=== PATIENT | female | born 1980 | race Hispanic/Latino ===

== ENCOUNTER 2021-12-10 12:01 | Inpatient (IN) | payer SELFPAY ==
[~2021-12-10] VITALS: Ht 167.6 cm; Wt 98.0 kg
[~2021-12-10 12:01] MED LIST: Metoprolol PO; ZESTRIL10 MG PO
[2021-12-10] MEDS ORDERED: SODIUM CHLORIDE 0.9% 250ML 250 ML IV ONE (12:30)
[2021-12-10 12:43] LABS: BASOPHILS # (AUTO) 0.1 (0.0-0.1); BASOPHILS % 1.6 % (0.0-1.0); EOSINOPHILS # (AUTO) 0.1 (0.0-0.4); EOSINOPHILS % 1.7 % (0.0-6.0); LYMPHOCYTES # (AUTO) 1.8 (1.0-3.2); LYMPHOCYTES % 30.6 % (18.0-39.1); MEAN CORPUSCULAR HEMOGLOBIN 14.4 pg (28-32); MEAN CORPUSCULAR HGB CONC 24.6 g/dL (31-35); MEAN CORPUSCULAR VOLUME 58.6 fL (81-99); MONOCYTES # (AUTO) 0.5 (0.2-0.8); MONOCYTES % 9.2 % (4.4-11.3); NEUTROPHILS # (AUTO) 3.2 (2.1-6.9); PLATELET COUNT 398 x10e3/uL (140-360); RED BLOOD COUNT 2.85 x10e6/uL (3.6-5.1); RED CELL DISTRIBUTION WIDTH 18.7 % (11.7-14.4)
[2021-12-10 12:47] LABS: HEMOGLOBIN 4.1 g/dL (12.0-16.0)
[2021-12-10 12:48] LABS: HEMATOCRIT 16.7 % (34.2-44.1)
[2021-12-10 13:04] LABS: CREATINE KINASE 57 IU/L (29-168)
[2021-12-10 13:07] LABS: ALBUMIN 3.8 g/dL (3.5-5.0); ALBUMIN/GLOBULIN RATIO 1.1 (0.8-2.0); CREATININE, SERUM 0.75 mg/dL (0.57-1.11)
[2021-12-10 13:11] LABS: AMPHETAMINES SCREEN,URINE NEGATIVE (NEGATIVE); BENZODIAZEPINES SCREEN,URINE NEGATIVE (NEGATIVE); PHENCYCLIDINE SCREEN,URINE NEGATIVE (NEGATIVE)
[2021-12-10] MEDS ORDERED: IOPAMIDOL 370 MG/ML 100 ML INFUS..BTL INJ ONE (13:30)
[2021-12-10 20:30] VITALS: BP 123/67
[2021-12-10] MEDS ORDERED: SODIUM CHLORIDE 0.9% 250ML 250 ML ONE (21:29)
[2021-12-10 21:47] VITALS: BP 123/67
[2021-12-10 21:48] VITALS: BP 123/67
[2021-12-10] MEDS ORDERED: DOCUSATE SODIUM 100 MG CAP PO PRN (22:30)
[2021-12-10] MEDS ORDERED: ACETAMINOPHEN 325 MG TAB PO PRN (22:30)
[2021-12-10] MEDS ORDERED: LYSTEDA650 MG PO (22:35)
[2021-12-10 22:53] LABS: CHOL/HDL RATIO 3.2 (3.0-3.6)
[2021-12-10 23:31] LABS: % IRON SATURATION 2 % (15-50); IRON 9 ug/dL (50-170); TOTAL IRON BINDING CAPACITY 567 ug/dL (261-478); TRANSFERRIN 405 mg/dL (180-382)
[2021-12-10 23:53] LABS: FERRITIN < 1.00 ng/mL (4.63-204.00)
[2021-12-11] VITALS (8 sets, daily range): BP systolic 115–131; BP diastolic 64–73
[2021-12-11 05:15] LABS: BASOPHILS # (AUTO) 0.1 (0.0-0.1); BASOPHILS % 1.3 % (0.0-1.0); EOSINOPHILS # (AUTO) 0.1 (0.0-0.4); EOSINOPHILS % 1.8 % (0.0-6.0); HEMOGLOBIN 6.7 g/dL (12.0-16.0); LYMPHOCYTES # (AUTO) 2.3 (1.0-3.2); LYMPHOCYTES % 37.1 % (18.0-39.1); MEAN CORPUSCULAR HEMOGLOBIN 19.1 pg (28-32); MEAN CORPUSCULAR HGB CONC 27.9 g/dL (31-35); MONOCYTES # (AUTO) 0.6 (0.2-0.8); MONOCYTES % 10.1 % (4.4-11.3); NEUTROPHILS % 49.4 % (38.7-80.0); PLATELET COUNT 299 x10e3/uL (140-360); RED CELL DISTRIBUTION WIDTH 26.7 % (11.7-14.4)
[2021-12-11 05:34] LABS: MEAN CORPUSCULAR VOLUME 68.6 fL (81-99)
[2021-12-11] MEDS: FAMOTIDINE 20 MG TAB PO SCH ×2 (08:53→15:43)
[2021-12-11] MEDS: MULTIVITAMINS/MINERALS TAB PO SCH (08:53)
[2021-12-11] MEDS ORDERED: SODIUM CHLORIDE 0.9% 250ML 250 ML IV ONE (14:00)
[2021-12-11] MEDS: SODIUM FERRIC GLUCONATE COMPLX 125 MG in SODIUM CHLORIDE 0.9% 100 ML IV SCH (14:13)
[2021-12-11] MEDS ORDERED: MEDROXYPROGESTERONE ACETATE 150 MG/ML VIAL IM NR (17:00)
[2021-12-11] MEDS ORDERED: SODIUM CHLORIDE 0.9% 250ML 250 ML ONE (20:28)
[2021-12-12] VITALS (8 sets, daily range): BP systolic 112–133; BP diastolic 53–73
[2021-12-12] MEDS ORDERED: SODIUM CHLORIDE 0.9% 250ML 250 ML ONE (00:59)
[2021-12-12] MEDS: SODIUM FERRIC GLUCONATE COMPLX 125 MG in SODIUM CHLORIDE 0.9% 100 ML IV SCH (09:15)
[2021-12-12] MEDS: FAMOTIDINE 20 MG TAB PO SCH ×2 (09:15→17:27)
[2021-12-12] MEDS: MULTIVITAMINS/MINERALS TAB PO SCH (09:15)
[2021-12-12 12:02] LABS: HEMATOCRIT 31.3 % (34.2-44.1); HEMOGLOBIN 9.3 g/dL (12.0-16.0)
[2021-12-13 00:14] VITALS: BP 118/55
[2021-12-13 05:34] VITALS: BP 117/70
[2021-12-13 08:11] VITALS: BP 122/61
[2021-12-13] MEDS: MULTIVITAMINS/MINERALS TAB PO SCH (08:44)
[2021-12-13] MEDS: FAMOTIDINE 20 MG TAB PO SCH (08:45)
[2021-12-13] MEDS: SODIUM FERRIC GLUCONATE COMPLX 125 MG in SODIUM CHLORIDE 0.9% 100 ML IV SCH (09:03)
[2021-12-13] MEDS ORDERED: Multivitamins/Minerals PO (10:15)
[2021-12-13] MEDS ORDERED: FERROUS SULFAT325 M1 PO (10:15)
[2021-12-13] MEDS ORDERED: FAMOTIDINE20 MG PO (10:15)
== END 2021-12-13 10:54 | disposition home or self-care (01) | DRG 760 ==
LOC: ER 12:07 → ERHOLD 16:59 → MED/SURG2 20:14 → OBSVTOIN 12-11 14:43
PROVIDERS: ADMIT Internal Medicine; ATTEND Internal Medicine
PROC: 30233N1 Transfusion of Nonautologous Red Blood Cells into Peripheral Vein, Percutaneous Approach (ICD-10-PCS; principal; 2021-12-10)
DX: D25.9 Leiomyoma of uterus, unspecified (principal); E87.20 Acidosis, unspecified; D50.0 Iron deficiency anemia secondary to blood loss (chronic); I10 Essential (primary) hypertension; R07.89 Other chest pain; N92.1 Excessive and frequent menstruation with irregular cycle; E66.9 Obesity, unspecified; Z68.34 Body mass index [BMI] 34.0-34.9, adult; K80.20 Calculus of gallbladder without cholecystitis without obstruction; Z20.822 Contact with and (suspected) exposure to COVID-19
CPT/HCPCS: 36415; 71045; 74177; 80053; 80061; 80307; 81025; 82550; 82553; 82607; 82728; 82746; 83036; 83540; 83690; 83880; 84466; 84484; 85014; 85018; 85025; 85379; 86850; 86900; 86920; 93005; 99284; G0378; J2916; J7050; P9016; Q9967